=== PATIENT | female | born 1940 | race Caucasian/White ===

== ENCOUNTER 2020-11-14 10:53 | Day surgery (SDC) | payer MEDICARE, MEDICAID ==
[~2020-11-14] VITALS: Ht 160 cm; Wt 58.6 kg
[~2020-11-14 10:53] MED LIST: LEVO50TA5 PO; VIT1TABL34 PO; VITA100022 PO; VITA1TAB19 PO; cranberry PO; focus factor PO; magnesium PO; venlafaxine PO
[2020-11-14 11:13] VITALS: BP 135/81
[2020-11-14] MEDS ORDERED: CHLORHEXIDINE 15 ML UDC ONE (11:18)
[2020-11-14] MEDS ORDERED: CHLORHEXIDINE 15 ML UDC MM ONE (11:30)
[2020-11-14] MEDS ORDERED: LACTATED RINGERS 1,000 ML IV SCH (11:30)
[2020-11-14] MEDS ORDERED: MIDAZOLAM 1 MG/ML, 2ML ONE (12:15)
[2020-11-14] MEDS ORDERED: FENTANYL PF 100 MCG/2ML ONE ×2 (12:15→14:11)
[2020-11-14] MEDS ORDERED: BUPIVACAINE/PF-EPI 0.5% 1:200K ONE (12:19)
[2020-11-14] MEDS ORDERED: CEFAZOLIN 1,000 MG ONE (13:01)
[2020-11-14] MEDS ORDERED: PROPOFOL 10 MG/ML, 20ML ONE (13:01)
[2020-11-14] MEDS ORDERED: SUCCINYLCHOLINE 20 MG/ML, 10ML ONE (13:01)
[2020-11-14] MEDS ORDERED: ONDANSETRON 2MG/ML, 2ML ONE (13:01)
[2020-11-14] MEDS ORDERED: OXYcodone 5 MG/5 ML ORAL.SOL UDC PO PRN (13:30)
[2020-11-14] MEDS ORDERED: ONDANSETRON 2MG/ML, 2ML IVPush PRN (13:30)
[2020-11-14] MEDS ORDERED: HYDROmorphone 1 MG/ML, 1ML INJ IVPush PRN (13:30)
[2020-11-14] MEDS ORDERED: ACETAMINOPHEN 325 MG TABLET PO PRN (13:30)
[2020-11-14] MEDS ORDERED: HALOPERIDOL 5 MG/ML IV PRN (13:30)
[2020-11-14] MEDS ORDERED: hydrALAzine 20 MG/ML, 1ML IV PRN (13:30)
[2020-11-14] MEDS ORDERED: LABETALOL 5MG/ML, 20ML IV PRN (13:30)
[2020-11-14] MEDS ORDERED: ACETAMINOPHEN 650 MG/20.3 ML UDC ONE ×2 (14:11→14:15)
[2020-11-14] MEDS: FENTANYL PF 100 MCG/2ML IV PRN ×2 (14:20→14:30)
[2020-11-14] MEDS ORDERED: OXYcodone 5 MG/5 ML ORAL.SOL UDC ONE (14:52)
[2020-11-14] MEDS ORDERED: HYDROmorphone 1 MG/ML, 1ML INJ ONE (14:52)
== END 2020-11-14 16:30 | disposition home or self-care (01) ==
LOC: OUT 10:53
PROVIDERS: ATTEND Orthopaedic Surgery
DX: S52.572A Other intraarticular fracture of lower end of left radius, initial encounter for closed fracture (principal); S52.692A Other fracture of lower end of left ulna, initial encounter for closed fracture; M85.832 Other specified disorders of bone density and structure, left forearm; E03.9 Hypothyroidism, unspecified; F32.9 Major depressive disorder, single episode, unspecified; M06.9 Rheumatoid arthritis, unspecified; Z20.828 Contact with and (suspected) exposure to other viral communicable diseases; Z79.899 Other long term (current) drug therapy; Z82.61 Family history of arthritis; W18.39XA Other fall on same level, initial encounter; Y93.89 Activity, other specified; Y92.89 Other specified places as the place of occurrence of the external cause; Y99.8 Other external cause status
CPT/HCPCS: 25609; 73100; 87635; 93005; C1713; C1762; J0330; J0690; J2250; J2405; J2704; J3010; J7120; 76000